=== PATIENT | female | born 1940 | race Caucasian/White ===

== ENCOUNTER 2022-06-29 04:52 | Day surgery (SDC) | payer OTHER ==
[2022-06-25 13:09] VITALS: BMI 25.4
[2022-06-29 12:39] VITALS: TEMP 97.5
[2022-06-29 13:09] VITALS: BP 158/66; PULSE 59; RESP 14
== END 2022-06-29 13:22 | disposition home or self-care (01) ==
LOC: JASU-ENDO 04:52
PROVIDERS: ATTEND Internal Medicine Gastroenterology
PROC: 0DBP8ZX Excision of Rectum, Via Natural or Artificial Opening Endoscopic, Diagnostic (ICD-10-PCS; principal; 2022-06-29 11:00)
DX: Z12.11 Encounter for screening for malignant neoplasm of colon (principal); D12.8 Benign neoplasm of rectum; K57.30 Diverticulosis of large intestine without perforation or abscess without bleeding; K64.8 Other hemorrhoids
CPT/HCPCS: 88305-TC

== ENCOUNTER 2023-07-12 04:42 | Day surgery (SDC) | payer OTHER ==
[2023-07-11 13:27] VITALS: BMI 23.8
[~2023-07-12 04:42] MED LIST: DEXAMETHASONE SOD PHOSPHATE 10 MG/1 ML VIAL IM ONE; IOHEXOL 180 MG/1 ML ML IJ ONE; LIDOCAINE HCL 1% PRESERVATIVE FREE - 30ML VIAL IJ ONE
[2023-07-12] MEDS ORDERED: DEXAMETHASONE SOD PHOSPHATE 10 MG/1 ML VIAL ONE (07:35)
[2023-07-12] MEDS ORDERED: LIDOCAINE HCL/PF 1% SDV 5ML VIAL ONE (07:35)
[2023-07-12 08:50] VITALS: RESP 20
[2023-07-12] MEDS ORDERED: LIDOCAINE HCL 1% PRESERVATIVE FREE - 30ML VIAL IJ ONE (10:13)
[2023-07-12] MEDS ORDERED: IOHEXOL 180 MG/1 ML ML IJ ONE (10:16)
[2023-07-12] MEDS ORDERED: DEXAMETHASONE SOD PHOSPHATE 10 MG/1 ML VIAL IM ONE (10:29)
[2023-07-12 10:55] VITALS: BP 158/80; PULSE 67; TEMP 97
[2023-07-12] MEDS ORDERED: ACETAMINOPHEN 500 MG TABLET (FP) PO PRN (14:02)
== END 2023-07-12 11:35 | disposition home or self-care (01) ==
LOC: JASU-SURG 04:42
PROVIDERS: ATTEND Pain Medicine Pain Medicine
PROC: 3E0R3BZ Introduction of Anesthetic Agent into Spinal Canal, Percutaneous Approach (ICD-10-PCS; 2023-07-12)
PROC: 3E0R33Z Introduction of Anti-inflammatory into Spinal Canal, Percutaneous Approach (ICD-10-PCS; principal; 2023-07-12 10:30)
DX: M54.16 Radiculopathy, lumbar region (principal)
CPT/HCPCS: 76000-TC-FY; J1100

== ENCOUNTER 2023-11-04 04:35 | Day surgery (SDC) | payer OTHER ==
[2023-10-31 09:07] VITALS: BMI 23.8
[2023-11-04] MEDS ORDERED: LIDOCAINE HCL/PF 1% SDV 5ML VIAL ONE (07:35)
[2023-11-04] MEDS ORDERED: DEXAMETHASONE SOD PHOSPHATE 10 MG/1 ML VIAL ONE (07:50)
[2023-11-04] MEDS ORDERED: ACETAMINOPHEN 500 MG TABLET (FP) PO PRN (11:36)
[2023-11-04] MEDS: LIDOCAINE 1% P/F 10 MG/ML VIAL INF ONE ×2 (11:50)
[2023-11-04] MEDS: DEXAMETHASONE SOD PHOSPHATE 10 MG/1 ML VIAL IVPUSH ONE ×2 (11:50)
[2023-11-04] MEDS: IOHEXOL 180 MG/1 ML ML IJ ONE ×2 (11:50)
[2023-11-04 12:06] VITALS: BP 154/72; PULSE 74; RESP 18; TEMP 97.9
== END 2023-11-04 12:32 | disposition home or self-care (01) ==
LOC: JASU-SURG 04:35
PROVIDERS: ATTEND Pain Medicine Pain Medicine
PROC: 3E0R3BZ Introduction of Anesthetic Agent into Spinal Canal, Percutaneous Approach (ICD-10-PCS; 2023-11-04)
PROC: 3E0R33Z Introduction of Anti-inflammatory into Spinal Canal, Percutaneous Approach (ICD-10-PCS; principal; 2023-11-04 12:15)
DX: M48.061 Spinal stenosis, lumbar region without neurogenic claudication (principal); M54.16 Radiculopathy, lumbar region
CPT/HCPCS: J1100